=== PATIENT | female | born 1945 | race Caucasian/White ===

== ENCOUNTER → 2017-03-01 | Outpatient (CLI) | payer MEDICARE ==
--- NOTE | 2017-03-01 14:01 | XR ---
EXAMINATION TYPE: XR chest 2V DATE OF EXAM: 03/01/2017 COMPARISON: 01/02/2016 HISTORY: Lower chest pain after lifting injury TECHNIQUE: Frontal and lateral views of the chest are obtained. FINDINGS: There is no focal air space opacity, pleural effusion, or pneumothorax seen. The cardiac silhouette size is within normal limits. The osseous structures are intact. There is persistent pro minence of the right paratracheal stripe, proven to relate to SVC/azygos prominent confluence on CT t horax of 01/02/2016. Partial visualization of lumbar surgical fusion hardware is noted. Mild degenerat laly changes of the thoracic spine are seen. No displaced fractures are noted. IMPRESSION: 1. No acute cardiopulmonary process. 2. No displaced fractures.
--- NOTE | 2017-03-01 14:08 | XR ---
EXAMINATION TYPE: XR ribs RT DATE OF EXAM: 03/01/2017 COMPARISON: NONE HISTORY: Lifting injury 1 1/2 weeks ago with right-sided lower chest pain. TECHNIQUE: Frontal and oblique radiographs of the right ribs were obtained. FINDINGS: There is a nondisplaced fracture of the anterior margin of rib 8 on the right. Remaining os seous structures appear intact. Mild degenerative changes of the thoracic spine are noted. Visualized lungs appear clear. IMPRESSION: Nondisplaced fracture of the anterior margin of rib 8 on the right.
== END ==
LOC: RADXRMAIN 13:08
PROVIDERS: ATTEND Family Medicine
DX: S22.31XA Fracture of one rib, right side, initial encounter for closed fracture (principal); R07.9 Chest pain, unspecified
CPT/HCPCS: 71020

== ENCOUNTER → 2017-03-19 | Outpatient (CLI) | payer MEDICARE ==
--- NOTE | 2017-03-19 14:29 | BD ---
EXAMINATION TYPE: MG DEXA axial skeleton. DATE OF EXAM: 03/19/2017 COMPARISON: NONE CLINICAL HISTORY: Postmenopausal female Height: 63 Weight: 145.2 FRAX RISK QUESTIONS: Alcohol (3 or more units per day): no Family History (Parent hip fracture): no Glucocorticoids (More than 3mos): no (Ex: prednisone, prednisolone, methylprednisolone, dexamethasone, and hydrocortisone). History of Fracture in Adulthood: no Secondary Osteoporosis: 1. Type 1 Diabetes: no 2. Hyperthyroidism: no 3. Menopause before 45: no 4. Malnutrition: no 5. Chronic liver disease: no Rheumatoid Arthritis: no Current Tobacco Use: no RISK FACTORS HISTORY OF: Hip Fracture (Right/Left): no Spine Fracture: no History of Wrist Fracture: no Surgery to Spine/Hip(right/left)/Wrist (right/left): l-spine fusion/ l-4.l-5 with plates and screws When: 2010 Family History of Osteoporosis: unsure Active: yes Diet low in dairy products/other sources of calcium: no Postmenopausal woman: age 52 Lost more than 2 inches in height since high school: just 2 inches Frequent falls: no Poor Health: no Adrenal Insufficiency: no MEDICATIONS: lisinopril, omeprazole Additional History: spine surgery 2010 EXAM MEASUREMENTS: Bone mineral densitometry was performed using the [employer] System. Bone mineral density about the R hip (g/cm2): 0.654 Bone mineral density about the L hip (g/cm2): 0.632 T Score values are as follows: -----R Neck: -2.8 -----L Neck: -2.9 -----R Total: -2.2 -----L Total: -2.2 Bone mineral density baseline here IMPRESSION: Osteoporosis (T Score less than -2.5) as noted by T Score values at the There is increased fracture risk and therapy is usually indicated based on age. Re-Screen 1-2 years. NOTE: T-SCORE=SD OF THE YOUNG ADULT MEAN.
--- NOTE | 2017-03-22 12:05 | MM ---
Reason for exam: screening (asymptomatic). Last mammogram was performed 1 year and 11 months ago. History: Patient is postmenopausal. Family history of breast cancer in maternal aunt at age 80. Benign excisional biopsy of the left breast, 2004. Cyst aspiration of the left breast. Physical Findings: A clinical breast exam by your physician is recommended on an annual basis and results should be correlated with mammographic findings. MG 3D Screening Mammo W/Cad Bilateral CC and MLO view(s) were taken. Prior study comparison: April 25, 2015, mammogram, performed at [facility]. April 05, 2014, mammogram, performed at [facility]. The breast tissue is heterogeneously dense. This may lower the sensitivity of mammography. There is no discrete abnormality. No significant changes when compared with prior studies. ASSESSMENT: Negative, BI-RAD 1 RECOMMENDATION: Routine screening mammogram of both breasts in 1 year.
== END | disposition home or self-care (01) ==
LOC: RADMAMWWP 11:35
PROVIDERS: ATTEND Family Medicine
DX: Z12.31 Encounter for screening mammogram for malignant neoplasm of breast (principal); M81.0 Age-related osteoporosis without current pathological fracture
CPT/HCPCS: 77080; 77063; G0202

== ENCOUNTER → 2017-08-23 | Outpatient (CLI) | payer MEDICARE ==
[2017-08-23 10:22] LABS: Basophils # (A) 0.1 k/uL (0-0.2); Basophils % (A) 1 %; Eosinophils # (A) 0.1 k/uL (0-0.7); Eosinophils % (A) 1 %; HCT 43.3 % (34.0-46.0); HGB 13.6 gm/dL (11.4-16.0); Lymphocytes # (A) 1.4 k/uL (1.0-4.8); Lymphocytes % (A) 35 %; MCH 30.8 pg (25.0-35.0); MCHC 31.4 g/dL (31.0-37.0); MCV 98.2 fL (80.0-100.0); Mean Platelet Volume 7.2; Monocytes # (A) 0.4 k/uL (0-1.0); Monocytes % (A) 9 %; Neutrophils # (A) 1.9 k/uL (1.3-7.7); Neutrophils % (A) 50 %; Platelet Count 207 k/uL (150-450); RBC 4.41 m/uL (3.80-5.40); RDW 12.1 % (11.5-15.5); WBC 3.9 k/uL (3.8-10.6)
[2017-08-23 10:26] LABS: ALT 35 U/L (9-52); AST 26 U/L (14-36); Albumin 4.3 g/dL (3.5-5.0); Alkaline Phosphatase 68 U/L (38-126); Anion Gap 9 mmol/L; Blood Urea Nitrogen 20 mg/dL (7-17); Calcium 9.7 mg/dL (8.4-10.2); Carbon Dioxide 29 mmol/L (22-30); Chloride 102 mmol/L (98-107); Glucose 89 mg/dL (74-99); Potassium 4.3 mmol/L (3.5-5.1); Sodium 140 mmol/L (137-145); Total Bilirubin 0.7 mg/dL (0.2-1.3); Total Protein 6.9 g/dL (6.3-8.2)
== END | disposition home or self-care (01) ==
LOC: LABWHC1 09:18
PROVIDERS: ATTEND Family Medicine
DX: I10 Essential (primary) hypertension (principal); D72.819 Decreased white blood cell count, unspecified
CPT/HCPCS: 36415; 80053; 85025

== ENCOUNTER → 2018-05-03 | Outpatient (CLI) | payer MEDICARE ==
[2018-05-03 10:40] LABS: HCT 40.8 % (34.0-46.0); HGB 13.2 gm/dL (11.4-16.0); MCH 31.3 pg (25.0-35.0); MCHC 32.3 g/dL (31.0-37.0); MCV 96.9 fL (80.0-100.0); Mean Platelet Volume 6.8; Platelet Count 209 k/uL (150-450); RBC 4.21 m/uL (3.80-5.40); RDW 12.2 % (11.5-15.5); WBC 3.5 k/uL (3.8-10.6)
[2018-05-03 17:26] LABS: Albumin 4.3 g/dL (3.80-4.90); Albumin/Globulin Ratio 2.15 (1.20-2.10); Anion Gap 7.2 mmol/L (4.00-12.00); Calcium 9.3 mg/dL (8.7-10.3); Carbon Dioxide 29.8 mmol/L (21.6-31.8); LDL Cholesterol,Calculated 81.2 mg/dL (0.0-131.0); Potassium 4.3 mmol/L (3.5-5.5); Total Bilirubin 0.5 mg/dL (0.2-1.2); Total Protein 6.3 g/dL (6.2-8.2); VLDL Calculation 21.8 mg/dL (5.00-40.00)
== END ==
LOC: LABWHC1 09:46
PROVIDERS: ATTEND Family Medicine
DX: Z00.00 Encounter for general adult medical examination without abnormal findings (principal)
CPT/HCPCS: 36415; 80053; 80061; 84443; 85027

== ENCOUNTER → 2018-12-27 | Outpatient (CLI) | payer MEDICARE ==
--- NOTE | 2018-12-28 09:14 | ECHOF ---
Referral Reason:mitral value prolapse I34.1 MEASUREMENTS -------- HEIGHT: 160.0 cm WEIGHT: 62.6 kg BP: 157/75 RVIDd: 3.9 cm (< 3.3) IVSd: 1.3 cm (0.6 - 1.1) LVIDd: 4.1 cm (3.9 - 5.3) LVPWd: 1.4 cm (0.6 - 1.1) IVSs: 1.3 cm LVIDs: 2.9 cm LVPWs: 2.1 cm LAESV Index (A-L): 21.13 ml/m Ao Diam: 3.0 cm (2.0 - 3.7) AV Cusp: 1.7 cm (1.5 - 2.6) LA Diam: 4.0 cm (2.7 - 3.8) MV EXCURSION: 15.618 mm (> 18.000) MV EF SLOPE: 75 mm/s (70 - 150) EPSS: 1.8 cm MV E Pablo: 0.59 m/s MV DecT: 168 ms MV A Pablo: 0.60 m/s MV E/A Ratio: 0.99 AR PHT: 582 ms RAP: 5.00 mmHg RVSP: 30.29 mmHg FINDINGS -------- Sinus rhythm. This was a technically adequate study. The left ventricular size is normal. There is mild concentric left ventricular hypertrophy. There is normal global left ventricular contractility. Overall left ventricular systolic function is nor mal with, an EF between 55 - 60 %. The diastolic filling pattern is normal for the age of the patie nt 8.41. The right ventricle is moderately enlarged. Moderator band is visualized in the right ventricular a pex. Normal LA size by volume 22+/-6 ml/m2. The right atrial size is normal. Interatrial and interventricular septum intact. The aortic valve is trileaflet and appears structurally normal. There is mild aortic valve sclerosi s. Trace to mild aortic regurgitation. There is no evidence of aortic stenosis. There is trace to mild mitral regurgitation. There is minimal mitral valve prolapse. Mild tricuspid regurgitation present. There is no evidence of pulmonary hypertension. The right v entricular systolic pressure, as measured by Doppler, is 30.29mmHg. The aortic root size is normal. Normal inferior vena cava with normal inspiratory collapse consistent with estimated right atrial pre ssure of 5 mmHg. There is no pericardial effusion. CONCLUSIONS -------- 1. Sinus rhythm. 2. This was a technically adequate study. 3. The left ventricular size is normal. 4. There is mild concentric left ventricular hypertrophy. 5. There is normal global left ventricular contractility. 6. Overall left ventricular systolic function is normal with, an EF between 55 - 60 %. 7. The diastolic filling pattern is normal for the age of the patient 8.41 8. The right ventricle is moderately enlarged. 9. Moderator band is visualized in the right ventricular apex. 10. Normal LA size by volume 22+/-6 ml/m2. 11. The right atrial size is normal. 12. Interatrial and interventricular septum intact. 13. The aortic valve is trileaflet and appears structurally normal. 14. There is mild aortic valve sclerosis. 15. Trace to mild aortic regurgitation. 16. There is no evidence of aortic stenosis. 17. There is trace to mild mitral regurgitation. 18. There is minimal mitral valve prolapse. 19. Mild tricuspid regurgitation present. 20. There is no evidence of pulmonary hypertension. 21. The right ventricular systolic pressure, as measured by Doppler, is 30.29mmHg. 22. The aortic root size is normal. 23. Normal inferior vena cava with normal inspiratory collapse consistent with estimated right atrial pressure of 5 mmHg. 24. There is no pericardial effusion. INTERNET [employer]ERCE SPECIALIST: Yun Nicole RDCS
== END | disposition home or self-care (01) ==
LOC: RADECHMAIN 14:41
PROVIDERS: ATTEND Family Medicine
DX: I34.1 Nonrheumatic mitral (valve) prolapse (principal); I51.7 Cardiomegaly; I35.8 Other nonrheumatic aortic valve disorders
CPT/HCPCS: 93306

== ENCOUNTER 2019-05-01 11:38 | Day surgery (SDC) | payer MEDICARE ==
[2019-04-27 09:23] VITALS: BMI 24.4
[~2019-05-01 11:38] MED LIST: LACTATED RINGERS 1,000 ML IV SCH; LIDOCAINE 1% 20 ML VIAL (10MG/ML) FOR IV START INTRADERMA PRN
[2019-05-01 11:58] VITALS: TEMP 98.2
[2019-05-01] MEDS ORDERED: LIDOCAINE 1% INJ 10MG/ML (20 ML MDV) ONE (12:58)
[2019-05-01] MEDS ORDERED: PROPOFOL 10 MG/ML 20 ML VIAL IV ONE (12:58)
--- NOTE | 2019-05-01 13:23 | P.PCN ---
Date of Procedure: 05/01/19 Description of Procedure: BRIEF HISTORY: Patient is a 73-year-old, pleasant, female with a medical history significant for Saenz's esophagus who comes in for EGD for surveillance. Last EGD 2-3 years ago was again consistent with Saenz's esophagus. She is on omeprazole 40 mg daily. She also takes Mylanta as needed for breakthrough symptoms. PROCEDURE PERFORMED: Esophagogastroduodenoscopy with biopsy. PREOPERATIVE DIAGNOSIS: Saenz's esophagus. ESTIMATED BLOOD LOSS: Minimal. IV sedation per anesthesia. PROCEDURE: After informed consent was obtained, the patient was brought into the endoscopy unit. IV sedation was administered by Anesthesia under continuous monitoring. Initially the Olympus GIF-190 video endoscope was inserted into the mouth. Esophagus intubated without any difficulty. It was gradually advanced into the stomach and duodenum and carefully examined. The bulb and the second part of the duodenum appeared normal, with biopsies taken to rule out celiac sprue. The scope at this time was withdrawn to the stomach, adequately insufflated with ai r, and upon careful examination, mucosa of the antrum, body, cardia and the fundus appeared normal, except for some mild punctate erythema in the antrum and body suggestive of mild gastritis with biopsies taken. The scope was then withdrawn into the esophagus. The GE junction was located at 36 cm from the incisors. The esophagus was significant for a 3 cm segment of Saenz's esophagus with no mucosal abnormalities noted and biopsies of the esophagus taken. There were no erosions or ulcerations seen and the patient tolerated the procedure well. IMPRESSION: 1. Lower esophageal/Saenz's esophagus biopsies. 2. Mild gastritis antrum and body biopsied. 3. Duodenal biopsies. RECOMMENDATIONS: The findings of this examination were discussed with the patient and her family. Okay to resume diet. Continue omeprazole 40 mg daily. Await pathology from biopsies. Anticipate repeat EGD in 3 years for Saenz's surveillance.
[2019-05-01 13:39] VITALS: BP 131/68; PULSE 77; RESP 18
== END 2019-05-01 14:28 | disposition home or self-care (01) ==
LOC: ORWHC2ENDO 11:38
PROVIDERS: ATTEND Internal Medicine
DX: K21.0 Gastro-esophageal reflux disease with esophagitis (principal); I10 Essential (primary) hypertension; I34.1 Nonrheumatic mitral (valve) prolapse; K29.50 Unspecified chronic gastritis without bleeding; Z80.41 Family history of malignant neoplasm of ovary; Z88.5 Allergy status to narcotic agent; Z79.899 Other long term (current) drug therapy; Z90.710 Acquired absence of both cervix and uterus; Z98.890 Other specified postprocedural states; Z79.82 Long term (current) use of aspirin
CPT/HCPCS: 88305; 43239; J2001; J2704

== ENCOUNTER → 2019-05-04 | Outpatient (CLI) | payer MEDICARE ==
--- NOTE | 2019-05-05 07:18 | BD ---
EXAMINATION TYPE: Axial Bone Density DATE OF EXAM: 05/04/2019 COMPARISON: 2017 CLINICAL HISTORY: M 83.0 Height: 5 FT 2 IN Weight: 141 FRAX RISK QUESTIONS: History of Fracture in Adulthood: YES Secondary Osteoporosis: 5. Chronic liver disease: CYST RISK FACTORS HISTORY OF: Surgery to Spine/Hip(right/left)/Wrist (right/left): LUMBAR When: 2010 Active: YES Postmenopausal woman: TOTAL HYST AGE 54 Lost more than 2 inches in height since high school: YES MEDICATIONS: Additional Medications: OMEPRAZOLE, Additional History: EXAM MEASUREMENTS: Bone mineral density about the R hip (g/cm2): 0.649 Bone mineral density about the L hip (g/cm2): 0.661 T Score values are as follows: -----R Neck: -2.8 -----L Neck: -2.7 -----R Total: -2.4 -----L Total: -2.5 Bone mineral density has: DECREASED -3.2 % since study of: 2017 Bone mineral density about the L Wrist (g/cm2): 0.317 T Score values are as follows: -----Dist. R+U: -6.1 -----Prox. R+U: -4.3 -----Radius total: -5.9 FIRST TIME WRIST HAS BEEN DONE IMPRESSION: Osteoporosis (T Score less than -2.5). There is increased fracture risk and therapy is usually indicated based on age. Re-Screen 1-2 years. NOTE: T-SCORE=SD OF THE YOUNG ADULT MEAN.
--- NOTE | 2019-05-05 11:10 | MM ---
Reason for exam: screening (asymptomatic). Last mammogram was performed 2 years and 1 month ago. History: Patient is postmenopausal. Family history of breast cancer in maternal aunt at age 80. Benign excisional biopsy of the left breast, 2004. Cyst aspiration of the left breast. Physical Findings: A clinical breast exam by your physician is recommended on an annual basis and results should be correlated with mammographic findings. MG 3D Screening Mammo W/Cad Bilateral CC and MLO view(s) were taken. Prior study comparison: March 19, 2017, bilateral MG 3d screening mammo w/cad. April 25, 2015, mammogram, performed at [facility]. The breast tissue is heterogeneously dense. This may lower the sensitivity of mammography. No suspicious abnormality. No significant changes when compared with prior studies. ASSESSMENT: Negative, BI-RAD 1 RECOMMENDATION: Routine screening mammogram of both breasts in 1 year.
== END | disposition home or self-care (01) ==
LOC: RADBDWWP 14:23
PROVIDERS: ATTEND Family Medicine
DX: Z12.31 Encounter for screening mammogram for malignant neoplasm of breast (principal); M81.0 Age-related osteoporosis without current pathological fracture
CPT/HCPCS: 77063; 77067; 77080

== ENCOUNTER → 2020-07-02 | Outpatient (CLI) | payer MEDICARE ==
--- NOTE | 2020-07-03 13:29 | MM ---
Reason for exam: screening (asymptomatic). Last mammogram was performed 1 year and 2 months ago. History: Patient is postmenopausal. Family history of breast cancer in maternal aunt at age 80. Benign excisional biopsy of the left breast, 2004. Cyst aspiration of the left breast. Physical Findings: A clinical breast exam by your physician is recommended on an annual basis and results should be correlated with mammographic findings. MG 3D Screening Mammo W/Cad Bilateral CC and MLO view(s) were taken. Prior study comparison: May 04, 2019, bilateral MG 3d screening mammo w/cad. March 19, 2017, bilateral MG 3d screening mammo w/cad. The breast tissue is heterogeneously dense. This may lower the sensitivity of mammography. There is no discrete abnormality. ASSESSMENT: Negative, BI-RAD 1 RECOMMENDATION: Routine screening mammogram of both breasts in 1 year.
== END | disposition home or self-care (01) ==
LOC: RADMAMWWP 11:46
PROVIDERS: ATTEND Family Medicine
DX: Z12.31 Encounter for screening mammogram for malignant neoplasm of breast (principal)
CPT/HCPCS: 77063; 77067

== ENCOUNTER → 2021-06-02 | Outpatient (CLI) | payer MEDICARE ==
[2021-06-02 14:53] LABS: Basophils # (A) 0.04 X 10*3/uL (0.00-0.10); Basophils % (A) 1.1 %; Eosinophils # (A) 0.06 X 10*3/uL (0.04-0.35); Eosinophils % (A) 1.7 %; HCT 40.7 % (37.2-46.3); HGB 13.3 g/dL (12.0-15.0); Lymphocytes # (A) 1.27 X 10*3/uL (0.90-5.00); Lymphocytes % (A) 36.5 %; MCHC 32.7 g/dL (32.0-37.0); Mean Platelet Volume 10.1 fL (9.5-12.2); Monocytes # (A) 0.48 X 10*3/uL (0.20-1.00); Monocytes % (A) 13.8 %; Neutrophils # (A) 1.62 X 10*3/uL (1.80-7.70); Neutrophils % (A) 46.6 %; Platelet Count 207 X 10*3/uL (140-440); RBC 4.03 X 10*6/uL (4.10-5.20); RDW 11.9 % (11.5-14.5); WBC 3.48 X 10*3/uL (4.50-10.00)
[2021-06-02 16:13] LABS: ALT 18 U/L (8-44); AST 23 U/L (13-35); African American GFR (CKD) 100.1 (60.0-200.0); Albumin 4.4 g/dL (3.8-4.9); Alkaline Phosphatase 64 U/L (41-126); BUN/Creat Ratio 30.91 Ratio (12.00-20.00); Blood Urea Nitrogen 21.3 mg/dL (9.0-27.0); Calcium 9.7 mg/dL (8.7-10.3); Carbon Dioxide 25.1 mmol/L (20.0-27.5); Chloride 102 mmol/L (96-109); Chol/HDL Ratio 2.36 Ratio; Globulin 2.1 g/dL (1.6-3.3); Glucose 91 mg/dL (70-110); LDL Cholesterol,Calculated 87.2 mg/dL (0.0-131.0); Non-African American GFR(CKD) 86.4 (60.0-200.0); Potassium 4.2 mmol/L (3.5-5.5); Sodium 139 mmol/L (135-145); Total Protein 6.4 g/dL (6.2-8.2)
== END | disposition home or self-care (01) ==
LOC: LABWHC1 08:56
PROVIDERS: ATTEND Family Medicine
DX: Z00.00 Encounter for general adult medical examination without abnormal findings (principal); I10 Essential (primary) hypertension
CPT/HCPCS: 36415; 80053; 80061; 84443; 85025

== ENCOUNTER → 2021-09-09 | Outpatient (CLI) | payer MEDICARE ==
--- NOTE | 2021-09-09 21:06 | BD ---
EXAMINATION TYPE: Axial Bone Density DATE OF EXAM: 09/09/2021 COMPARISON: 05.04.2019 CLINICAL HISTORY: 76 years year old Female. ICD-10 CODE: Osteoporosis M81.0 Height: 62.2 Weight: 137 FRAX RISK QUESTIONS: History of Fracture in Adulthood: YES RISK FACTORS HISTORY OF: HX OF RIB FRACTURES AN ADULT, Surgery to Spine SPINAL FUSION AND LAMINECTOMY, 2010 Postmenopausal woman: YES, AT AGE 54 YRS OLD, COMPLETE HYST Take estrogen and/or progesterone medications: YES, FOR ABOUT A YR ONLY Hyperparathyroidism: NO Adrenal Insufficiency: NO MEDICATIONS: Osteoporosis Medications: HAVE TRIED OSTEOPOROSIS MEDS IN THE PAST FOR 6 YRS, FOSAMAX, NOTHING NOW Additional Medications: REFLUX MEDS, VIT D AND CALCIUM Additional History: REFLUX, OSTEOPOROSIS, HX OF SPINAL FUSION, ERT IN PAST ONLY, EXAM MEASUREMENTS: Bone mineral densitometry was performed using the [employer] System. SPINAL FUSION......SPINE NOT SCANNED Bone mineral density about the R hip (g/cm2): 0.737 Bone mineral density about the L hip (g/cm2): 0.960 T Score values are as follows: -----R Neck: -2.9 -----L Neck: -3.0 -----R Total: -2.1 -----L Total: -2.5 Bone mineral density has: Increased 1.7% since study of: 05.04.2019 Bone mineral density about the L Wrist (g/cm2): 0.314 T Score values are as follows: -----Dist. R+U: -5.8 -----Prox. R+U: -4.4 -----Radius total: -6.0 Bone mineral density has: Decreased -2.0% since study of: 05.04.2019 FRAX%s: The graph provided illustrates a 33.7% chance for a major osteoporotic fx and a 13.7% chance for the hips probability for fx in 10 years time. IMPRESSION: Osteoporosis (T Score less than -2.5). There is increased fracture risk and therapy is usually indicated based on age. Re-Screen 1-2 years. NOTE: T-SCORE=SD OF THE YOUNG ADULT MEAN.
--- NOTE | 2021-09-11 13:43 | MM ---
Reason for exam: screening (asymptomatic). Last mammogram was performed 1 year and 2 months ago. History: Patient is postmenopausal. Family history of breast cancer in maternal aunt at age 80. Benign excisional biopsy of the left breast, 2004. Cyst aspiration of the left breast. Physical Findings: A clinical breast exam by your physician is recommended on an annual basis and results should be correlated with mammographic findings. MG 3D Screening Mammo W/Cad Bilateral CC and MLO view(s) were taken. Prior study comparison: July 02, 2020, bilateral MG 3d screening mammo w/cad. May 04, 2019, bilateral MG 3d screening mammo w/cad. There are scattered fibroglandular densities. No significant changes when compared with prior studies. ASSESSMENT: Benign, BI-RAD 2 RECOMMENDATION: Routine screening mammogram of both breasts in 1 year.
== END | disposition home or self-care (01) ==
LOC: RADMAMWWP 12:39
PROVIDERS: ATTEND Family Medicine
DX: Z12.31 Encounter for screening mammogram for malignant neoplasm of breast (principal); M81.0 Age-related osteoporosis without current pathological fracture; Z80.3 Family history of malignant neoplasm of breast; Z78.0 Asymptomatic menopausal state
CPT/HCPCS: 77063; 77067; 77080

== ENCOUNTER 2021-10-10 14:03 | Emergency (ER) | payer MEDICARE ==
[2021-10-10 14:56] VITALS: TEMP 98.2
[2021-10-10 15:57] LABS: Appearance,Urine Clear (Clear); Bilirubin,Urine Negative (Negative); Blood,Urine Negative (Negative); Color,Urine Light Yellow; Glucose,Urine (UA) Negative (Negative); Ketones,Urine Negative (Negative); Leukocyte Esterase,Urine Negative (Negative); Nitrite,Urine Negative (Negative); Protein,Urine Negative (Negative); Urobilinogen,Urine <2.0 mg/dL (<2.0)
[2021-10-10 16:02] LABS: Basophils % (A) 1 %; Eosinophils % (A) 1 %; HCT 43.5 % (34.0-46.0); HGB 14.7 gm/dL (11.4-16.0); Lymphocytes # (A) 1.1 k/uL (1.0-4.8); Lymphocytes % (A) 24 %; MCH 33.9 pg (25.0-35.0); MCHC 33.8 g/dL (31.0-37.0); MCV 100.4 fL (80.0-100.0); Mean Platelet Volume 7.2; Monocytes # (A) 0.3 k/uL (0-1.0); Monocytes % (A) 6 %; Neutrophils # (A) 3.2 k/uL (1.3-7.7); Neutrophils % (A) 65 %; Platelet Count 249 k/uL (150-450); RBC 4.33 m/uL (3.80-5.40); RDW 12.4 % (11.5-15.5); WBC 4.8 k/uL (3.8-10.6)
[2021-10-10 16:08] LABS: ALT 18 U/L (4-34); AST 29 U/L (14-36); African American GFR (CKD) >90 (>60 ml/min/1.73 sqM); Albumin 4.4 g/dL (3.5-5.0); Alkaline Phosphatase 79 U/L (38-126); Anion Gap 6 mmol/L; Blood Urea Nitrogen 18 mg/dL (7-17); Calcium 9.4 mg/dL (8.4-10.2); Carbon Dioxide 27 mmol/L (22-30); Chloride 105 mmol/L (98-107); Glucose 118 mg/dL (74-99); Non-African American GFR(CKD) 88 (>60 ml/min/1.73 sqM); Potassium 3.8 mmol/L (3.5-5.1); Sodium 138 mmol/L (137-145); Total Bilirubin 0.7 mg/dL (0.2-1.3); Total Protein 7.3 g/dL (6.3-8.2)
--- NOTE | 2021-10-10 16:31 | ED ---
General Adult HPI - General Chief complaint: Dizziness Stated complaint: High BP Source: patient Mode of arrival: ambulatory Limitations: no limitations - History of Present Illness Initial comments: 76-year-old female past medical history of BPPV, hypertension not on medications presents to the emergency department with dizziness. He states that she has had BPPV for decades. She normally performs the Artur maneuver when she has her episodes and has improvement in her symptoms. Reports that since May she has had increasing episodes. She saw an flavor maker in June and has further testing upcoming. She has not had any imaging of her head since 2013. She is currently not on any medications for her symptoms. Reports that this morning she attempted to roll over in bed and was actually dizzy. She was able to control her symptoms. Her reports that they were in the kitchen together when she ended up falling due to the dizziness. She has chronic hea daches which occur when she wakes up after about 5 hours. States that this is also occurred for decades. Denies any new or worsening headaches. No current headache. No current dizziness. Denies associated chest pain or shortness of breath. No recent injuries. No fevers. No unilateral numbness or weakness. They went into the urgent care clinic in [place]. They noted that the patient's blood pressure is high and therefore recommended that she come into the emergency room for further evaluation. No other alleviating, precipitating modifying factors - Related Data Home Medications Medication Instructions Recorded Confirmed Ascorbic Acid [Vitamin C] 500 mg PO HS 01/02/16 10/10/21 Calcium Carbonate [Calcium] 600 mg PO AC-BID 01/02/16 10/10/21 Cholecalciferol [Vitamin D3] 2,000 unit PO AC-BID 01/02/16 10/10/21 Magnesium Oxide [Mag-Ox] 250 mg PO AC-BID 01/02/16 10/10/21 Multivitamins, Thera [Multivitamin] 1 tab PO HS 01/02/16 10/10/21 Omeprazole 40 mg PO HS 01/02/16 10/10/21 [id number] 1 tab PO DAILY 10/10/21 10/10/21 [Excedrin] Fluticasone Nasal [place] [Flonase 1 spray EA NOSTRIL HS 10/10/21 10/10/21 Nasal [place]] Melatonin 10 mg PO HS 10/10/21 10/10/21 Previous Rx's Medication Instructions Recorded Furosemide [Lasix] 20 mg PO DAILY #30 tablet 10/10/21 Allergies Allergy/AdvReac Type Severity Reaction Status Date / Time codeine Allergy Nausea & Verified 10/10/21 17:10 Vomiting Review of Systems ROS Statement: Those systems with pertinent positive or pertinent negative responses have been documented in the HPI. ROS Other: All systems not noted in ROS Statement are negative. Past Medical History Past Medical History: Asthma, GERD/Reflux, Hypertension, Mitral Valve Prolapse (MVP), Osteoarthritis (OA), Sleep Apnea/CPAP/BIPAP Additional Past Medical History / Comment(s): heart murmur, DOES NOT USE A CAP MACHINE. DIVERTICULOSIS, CRUZ'S DISEASE History of Any Multi-Drug Resistant Organisms: None Reported Past Surgical History: Back Surgery, Hysterectomy Additional Past Surgical History / Comment(s): COLONOSCOPY AND EGD Past Anesthesia/Blood Transfusion Reactions: Postoperative Nausea & Vomiting (PONV) Past Psychological History: Anxiety Smoking Status: Never smoker Past Alcohol Use History: None Reported Past Drug Use History: None Reported - Past Family History Mother Family Medical History: Cancer, CVA/TIA Additional Family Medical History / Comment(s): OVARIAN CANCER General Exam Limitations: no limitations Course Vital Signs 10/10/21 10/10/21 10/10/21 14:52 15:37 17:03 Temperature 98.2 F Pulse Rate 79 76 81 Respiratory 18 14 16 Rate Blood Pressure 168/83 169/87 160/89 O2 Sat by Pulse 98 98 96 Oximetry 10/10/21 17:10 Temperature Pulse Rate 67 Respiratory 16 Rate Blood Pressure 141/93 O2 Sat by Pulse 100 Oximetry EKG Findings - EKG Comments: EKG Findings:: EKG demonstrates sinus rhythm with a rate of 77. ME interval 187. QRS 97. QTC 388. No acute ST segment elevations or depressions Medical Decision Making - Medical Decision Making Upon arrival patient was placed into room 27. She denies active symptoms at t his time. She does have a horizontal ice diagnosis. I recommended Antivert however the patient refused at this time. Laboratories his were conducted. I did perform a CT of the patient's brain. Review of the laboratory studies and imaging failed to demonstrate any acute process. Patient does have improvement in her blood pressure without treatment however still remains high. I recommended starting the patient on Lasix. She is to keep a blood pressure log. Follow-up with her primary care doctor as she may need medication adjustments. Also follow-up with her ENT for further testing for vertigo. Return for any new or worsening symptoms. Patient does have meclizine at home at her disposal if needed. Patient agreed to the treatment plan and is discharged home in stable condition - Lab Data Result diagrams: 10/10/21 15:34 10/10/21 15:34 Lab Results 10/10/21 10/10/21 10/10/21 Range/Units 15:34 15:34 15:34 WBC 4.8 (3.8-10.6) k/uL RBC 4.33 (3.80-5.40) m/uL Hgb 14.7 (11.4-16.0) gm/dL Hct 43.5 (34.0-46.0) % MCV 100.4 H (80.0-100.0) fL MCH 33.9 (25.0-35.0) pg MCHC 33.8 (31.0-37.0) g/dL RDW 12.4 (11.5-15.5) % Plt Count 249 (150-450) k/uL MPV 7.2 Neutrophils % 65 % Lymphocytes % 24 % Monocytes % 6 % Eosinophils % 1 % Basophils % 1 % Neutrophils # 3.2 (1.3-7.7) k/uL Lymphocytes # 1.1 (1.0-4.8) k/uL Monocytes # 0.3 (0-1.0) k/uL Eosinophils # 0.0 (0-0.7) k/uL Basophils # 0.0 (0-0.2) k/uL Sodium 138 (137-145) mmol/L Potassium 3.8 (3.5-5.1) mmol/L Chloride 105 (98-107) mmol/L Carbon Dioxide 27 (22-30) mmol/L Anion Gap 6 mmol/L BUN 18 H (7-17) mg/dL Creatinine 0.64 (0.52-1.04) mg/dL Est GFR (CKD-EPI)AfAm >90 (>60 ml/min/1.73 sqM) Est GFR (CKD-EPI)NonAf 88 (>60 ml/min/1.73 sqM) Glucose 118 H (74-99) mg/dL Plasma Lactic Acid Ernie (0.7-2.0) mmol/L Calcium 9.4 (8.4-10.2) mg/dL Total Bilirubin 0.7 (0.2-1.3) mg/dL AST 29 (14-36) U/L ALT 18 (4-34) U/L Alkaline Phosphatase 79 (38-126) U/L Troponin I (0.000-0.034) ng/mL Total Protein 7.3 (6.3-8.2) g/dL Albumin 4.4 (3.5-5.0) g/dL Urine Color Light Yellow Urine Appearance Clear (Clear) Urine pH 7.0 (5.0-8.0) Ur Specific [place] 1.010 (1.001-1.035) Urine Protein Negative (Negative) Urine Glucose (UA) Negative (Negative) Urine Ketones Negative (Negative) Urine Blood Negative (Negative) Urine Nitrite Negative (Negative) Urine Bilirubin Negative (Negative) Urine Urobilinogen <2.0 (<2.0) mg/dL Ur Leukocyte Esterase Negative (Negative) 10/10/21 10/10/21 Range/Units 15:34 15:34 WBC (3.8-10.6) k/uL RBC (3.80-5.40) m/uL Hgb (11.4-16.0) gm/dL Hct (34.0-46.0) % MCV (80.0-100.0) fL MCH (25.0-35.0) pg MCHC (31.0-37.0) g/dL RDW (11.5-15.5) % Plt Count (150-450) k/uL MPV Neutrophils % % Lymphocytes % % Monocytes % % Eosinophils % % Basophils % % Neutrophils # (1.3-7.7) k/uL Lymphocytes # (1.0-4.8) k/uL Monocytes # (0-1.0) k/uL Eosinophils # (0-0.7) k/uL Basophils # (0-0.2) k/uL Sodium (137-145) mmol/L Potassium (3.5-5.1) mmol/L Chloride (98-107) mmol/L Carbon Dioxide (22-30) mmol/L Anion Gap mmol/L BUN (7-17) mg/dL Creatinine (0.52-1.04) mg/dL Est GFR (CKD-EPI)AfAm (>60 ml/min/1.73 sqM) Est GFR (CKD-EPI)NonAf (>60 ml/min/1.73 sqM) Glucose (74-99) mg/dL Plasma Lactic Acid Ernie 1.2 (0.7-2.0) mmol/L Calcium (8.4-10.2) mg/dL Total Bilirubin (0.2-1.3) mg/dL AST (14-36) U/L ALT (4-34) U/L Alkaline Phosphatase (38-126) U/L Troponin I <0.012 (0.000-0.034) ng/mL Total Protein (6.3-8.2) g/dL Albumin (3.5-5.0) g/dL Urine Color Urine Appearance (Clear) Urine pH (5.0-8.0) Ur Specific [place] (1.001-1.035) Urine Protein (Negative) Urine Glucose (UA) (Negative) Urine Ketones (Negative) Urine Blood (Negative) Urine Nitrite (Negative) Urine Bilirubin (Negative) Urine Urobilinogen (<2.0) mg/dL Ur Leukocyte Esterase (Negative) Disposition Clinical Impression: Vertigo, Hypertension Disposition: HOME SELF-CARE Condition: Stable Instructions (If sedation given, give patient instructions): Vertigo (ED), Hypertension (ED) Additional Instructions: Please follow-up with the ENT for further evaluation. Take the Lasix daily. K eep a log of your blood pressures. Take meclizine as needed for vertigo symptoms. Return to the emergency room for any new or worsening symptoms Prescriptions: Furosemide [Lasix] 20 mg PO DAILY #30 tablet Is patient prescribed a controlled substance at d/c from ED?: No Referrals: Robe Dudley MD [Primary Care Provider] - 1-2 days Calderon Mooney MD [STAFF PHYSICIAN] - 1-2 days Time of Disposition: 17:55
--- NOTE | 2021-10-10 16:58 | CT ---
EXAMINATION TYPE: CT brain wo con CT DLP: 1087.8 mGycm, Automated exposure control for dose reduction was used. DATE OF EXAM: 10/10/2021 4:42 PM COMPARISON: None. CLINICAL INDICATION:Female, 76 years old with history of vertigo, TECHNIQUE: Brain: Multiple axial CT images of the brain were obtained without IV contrast. FINDINGS: Brain: Extra-axial spaces: No abnormal extra-axial fluid collections. Ventricular system: Within normal limits Cerebral parenchyma: No acute intraparenchymal hemorrhage or mass effect. The garrett-white junction is well differentiated. Scattered hypoattenuating areas are seen within the white matter. Cerebellum: Unremarkable. Mass effect: No evidence of midline shift. Intracranial vasculature: unremarkable Soft tissues: Normal. Calvarium/osseous structures: No depressed skull fracture. Paranasal sinuses and mastoid air cells: Mild scattered paranasal sinus disease. Visualized orbits: Orbital contents are intact. IMPRESSION: 1. No acute intracranial process. 2. Nonspecific white matter changes, likely secondary to chronic small vessel ischemic disease.
[2021-10-10 17:04] VITALS: RESP 16
[2021-10-10 17:10] VITALS: BP 141/93; PULSE 67
--- NOTE | 2021-10-10 17:10 | CT ---
EXAMINATION TYPE: CT angio head neck CT DLP: 334.5 mGycm, Automated exposure control for dose reduction was used. DATE OF EXAM: 10/10/2021 4:59 PM COMPARISON: None. CLINICAL INDICATION:Female, 76 years old with history of vertigo; TECHNIQUE: Axially acquired helical CT angiogram of the head and neck was obtained with contrast util izing 75 cc of Isovue-370 administered intravenously. Axial images are supplemented with 3D reconstru ctions which were post-processed at an independent workstation. NASCET criteria used. FINDINGS: CTA HEAD: No evidence of acute intracranial hemorrhage, mass effect, or midline shift. The ventricles, sulci, a nd cisterns are unremarkable. The visualized portions of the internal carotid arteries, middle cerebral arteries, anterior cerebral arteries, and posterior cerebral arteries are patent. The basilar and vertebral arteries are patent. CTA NECK: Right Carotid System: The common carotid artery and external carotid artery are patent. The carotid bifurcation demonstrate s no evidence of hemodynamically significant stenosis. The remaining portions of the internal carotid artery demonstrate normal size without significant narrowing. Left Carotid System: The common carotid artery and external carotid artery are patent. The carotid bifurcation demonstrate s no evidence of hemodynamically significant stenosis. The remaining portions of the internal carotid artery demonstrate normal size without significant narrowing. Vertebral arteries are patent without evidence hemodynamically significant stenosis. There is a three-vessel aortic arch. The origins of the great vessels are patent. No evidence of hemo dynamically significant stenosis. IMPRESSION: 1. No evidence of dissection of the cervical internal carotid arteries or vertebral arteries or any e vidence of significant stenosis at the carotid bifurcations. 2. No evidence of high-grade stenosis or intracranial aneurysm.
[2021-10-10] MEDS ORDERED: FUROSEMIDE 20 MG TAB PO STA (17:50)
== END 2021-10-10 18:23 | disposition home or self-care (01) ==
LOC: EC 14:03
DX: R42 Dizziness and giddiness (principal); I10 Essential (primary) hypertension; J45.909 Unspecified asthma, uncomplicated; K21.9 Gastro-esophageal reflux disease without esophagitis; M19.90 Unspecified osteoarthritis, unspecified site; F41.9 Anxiety disorder, unspecified; Z79.82 Long term (current) use of aspirin; Z88.5 Allergy status to narcotic agent; Z90.710 Acquired absence of both cervix and uterus
CPT/HCPCS: 99284; 36415; 93005; 80053; 83605; 84484; 85025; 81003; 70496; 70450; 70498; Q9967

== ENCOUNTER → 2021-10-20 | Outpatient (CLI) | payer MEDICARE ==
--- NOTE | 2021-10-21 07:48 | CA ---
Transthoracic Echo Report Name: Marina Berman Age: 76 Gender: F : 1945 Exam Date: 10/20/2021 13:57 Exam Location: [place] [facility] Ht (in): 62 Wt (lb): 140 Ordering Physician: Robe Dudley MD Attending/Referring Phys: Manager [employer] Ellie Talley RDCS Procedure CPT: Indications: HYPERTENSIVE INJURY H35.039 Cardiac Hx: HTN Technical Quality: Good Contrast 1: N/A Total Dose (mL): Contrast 2: Total Dose (mL): MEASUREMENTS (Male / Female) Normal Values 2D ECHO LV Diastolic Diameter PLAX 3.5 cm 4.2 - 5.9 / 3.9 - 5.3 cm LV Systolic Diameter PLAX 2.1 cm IVS Diastolic Thickness 1.1 cm 0.6 - 1.0 / 0.6 - 0.9 cm LVPW Diastolic Thickness 1.2 cm 0.6 - 1.0 / 0.6 - 0.9 cm LV Relative Wall Thickness 0.6 RV Internal Dim ED PLAX 2.1 cm LA Volume 43.6 cm??? 18 - 58 / 22 - 52 cm??? M-MODE Aortic Root Diameter MM 2.6 cm MV E Point Septal Separation 0.5 cm AV Cusp Separation MM 1.5 cm DOPPLER MV Area PHT 2.0 cm??? Mitral E Point Velocity 38.9 cm/s Mitral A Point Velocity 74.5 cm/s Mitral E to A Ratio 0.5 MV Deceleration Time 378.1 ms MV E' Velocity 4.0 cm/s Mitral E to MV E' Ratio 9.7 TR Peak Velocity 188.5 cm/s TR Peak Gradient 14.2 mmHg Right Ventricular Systolic Press 19.2 mmHg FINDINGS Left Ventricle Mildly increased left ventricular wall thickness. Left ventricular ejection fraction is estimated at 50-55%. Right Ventricle Normal right ventricular size. Right ventricular systolic pressure within normal limits. Right Atrium Normal right atrial size. Left Atrium Moderate left atrial dilatation. Mitral Valve Mild mitral regurgitation. Aortic Valve Trileaflet aortic valve. Tricuspid Valve Mild tricuspid regurgitation. Pulmonic Valve Mild pulmonic regurgitation. Pericardium Normal pericardium. Aorta Normal size aortic root and proximal ascending aorta. CONCLUSIONS Mild left ventricle hypertrophy with preserved systolic function Previewed by: Dr. Angel Rodriguez MD (Electronically Signed) Final Date: 21 Oct 2021 07:47
== END | disposition home or self-care (01) ==
LOC: RADECHMAIN 13:42
PROVIDERS: ATTEND Family Medicine
DX: I51.7 Cardiomegaly (principal)
CPT/HCPCS: 93306

== ENCOUNTER 2022-06-05 07:16 | Day surgery (SDC) | payer MEDICARE ==
[2022-06-02 14:50] VITALS: BMI 24.7
[2022-06-05] MEDS ORDERED: LACTATED RINGERS 1,000 ML IV SCH (07:29)
[2022-06-05] MEDS ORDERED: LIDOCAINE 1% (10MG/ML) FOR IV START INTRADERMA ONE (07:45)
[2022-06-05] MEDS ORDERED: ONDANSETRON 4 MG/2 ML VIAL ONE (08:10)
[2022-06-05 08:16] VITALS: RESP 16; TEMP 98.8
[2022-06-05] MEDS ORDERED: PROPOFOL 10 MG/ML 20 ML VIAL IV ONE (08:20)
[2022-06-05] MEDS ORDERED: LIDOCAINE 2% INJ 20 MG/ML (2 ML VIAL) ONE (08:20)
--- NOTE | 2022-06-05 08:42 | P.PCN ---
Date of Procedure: 06/05/22 Procedure(s) Performed: Brief history: Patient is a pleasant 76-year-old white female scheduled for an elective upper endoscopy as well as colonoscopy as a part of evaluation of GERD/Saenz's esophagus and prior history of colon polyps Procedure performed: Esophagogastroduodenoscopy with biopsy Colonoscopy Preoperative diagnosis: GERD/Saenz's esophagus History of colon polyps [place] [facility] [place]: After informed consent was obtained from the patient was brought into the endoscopy unit and IV sedation was administered by anesthesia under continuous monitoring. Initially upper endoscopy was done. The Olympus GF 160 video endoscope was inserted inserted into the mouth and esophagus intubated without any difficulty and was gradually advanced into the stomach and duodenum and carefully examined. The bulb and second part of the duodenum appeared normal. The scope was then withdrawn into the stomach adequately insufflated with air and upon careful examination the antrum and body, cardia and fundus appeared normal. The scope was then withdrawn into the esophagus. The GE junction was located at 36 cm to the incisors. Mall sliding type hiatal hernia noted. There was a 3-4 mm tongue of Saenz's appearing mucosa proximal to the GE junction which was biopsied. There were no erythema erosions or ulcerations. Rest of the esophagus appeared normal. Patient tolerated the procedure well. At this time the patient continued to remain sedation. Initial digital rectal examination was normal. Olympus CF 160 video colonoscope was then inserted into the rectum and gradually advanced to the cecum without any difficulty. Careful examination was performed as the scope was gradually being withdrawn. The prep was excellent. The cecum, ascending colon, transverse colon, descending colon, sigmoid colon and rectum appeared normal. Scattered sigmoid diverticulosis. Retroflexion was performed in the rectum and no lesions were noted. Patient tolerated the procedure well. Impression: 1. Upper endoscopy revealed short segment Saenz's esophagus and small hiatal hernia 2. Colonoscopy revealed scattered sigmoid diverticulosis but no evidence of colorectal neoplasia Recommendations: Findings of this examination were discussed with the patient as well as her family. She was advised to follow with the biopsy results. If the biopsy confirms the presence of Saenz's esophagus he can have a repeat upper endoscopy in 3 years. In the meantime she will continue with omeprazole 20 mg daily and follow antireflux measures. Recommend repeat screening colonoscopy in 10 years.
[2022-06-05 09:15] VITALS: BP 131/67; PULSE 75
== END 2022-06-05 09:42 | disposition home or self-care (01) ==
LOC: ORWHC2ENDO 07:16
PROVIDERS: ATTEND Internal Medicine Gastroenterology
DX: Z12.11 Encounter for screening for malignant neoplasm of colon (principal); K21.9 Gastro-esophageal reflux disease without esophagitis; K22.70 Barrett's esophagus without dysplasia; I10 Essential (primary) hypertension; G47.33 Obstructive sleep apnea (adult) (pediatric); I34.1 Nonrheumatic mitral (valve) prolapse; F41.8 Other specified anxiety disorders; Z79.899 Other long term (current) drug therapy; Z86.010 Personal history of colon polyps; Z98.890 Other specified postprocedural states
CPT/HCPCS: 88305; 43239; J2405; J2704; J2001; G0105; 45378

== ENCOUNTER → 2022-09-10 | Outpatient (CLI) | payer MEDICARE ==
--- NOTE | 2022-09-11 08:00 | MM ---
Reason for Exam: Screening (asymptomatic). Last screening mammogram was performed 12 month(s) ago. Patient History: Menarche at age 12. First Full-Term at age 31. Hysterectomy at age 54. Postmenopausal. Cyst Aspiration on the Left side. 2004, Benign Excisional Biopsy on the left side. Maternal aunt had breast cancer, age 80. Risk Values: Rody 5 year model risk: 2.5%. NCI Lifetime model risk: 5.5%. Prior Study Comparison: 05/04/2019 Bilateral Screening Mammogram, [facility]. 07/02/2020 Bilateral Screening Mammogram, [facility]. 09/09/2021 Bilateral Screening Mammogram, [facility]. Tissue Density: The breast tissue is heterogeneously dense. This may lower the sensitivity of mammography. Findings: Analyzed By CAD. There is no suspicious group of microcalcifications or new suspicious mass in either breast. Overall Assessment: Negative, BI-RAD 1 Management: Screening Mammogram of both breasts in 1 year. A clinical breast exam by your physician is recommended on an annual basis and results should be correlated with mammographic findings. Electronically signed and approved by: Redd Mcdermott M.D. Radiologis
== END | disposition home or self-care (01) ==
LOC: RADMAMWWP 13:48
PROVIDERS: ATTEND Family Medicine
DX: Z12.31 Encounter for screening mammogram for malignant neoplasm of breast (principal); Z78.0 Asymptomatic menopausal state; Z80.3 Family history of malignant neoplasm of breast; Z98.890 Other specified postprocedural states
CPT/HCPCS: 77063; 77067

== ENCOUNTER → 2023-09-13 | Outpatient (CLI) | payer MEDICARE ==
--- NOTE | 2023-09-16 22:46 | MM ---
Reason for Exam: Screening (asymptomatic). Last screening mammogram was performed 12 month(s) ago. Patient History: Menarche at age 12. First Full-Term at age 31. Left ovary removed at age 54. Right ovary removed at age 54. Hysterectomy at age 54. Postmenopausal. Cyst Aspiration on the Left side. 2004, Benign Excisional Biopsy on the left side. Maternal aunt had breast cancer, age 80. Risk Values: Rody 5 year model risk: 2.5%. NCI Lifetime model risk: 5.1%. Prior Study Comparison: 07/02/2020 Bilateral Screening Mammogram, [facility]. 09/09/2021 Bilateral Screening Mammogram, [facility]. 09/10/2022 Bilateral MG 3D screening mammo w/cad, [facility]. Tissue Density: The breasts are heterogeneously dense, which may obscure small masses. Findings: Analyzed By CAD. The pattern is symmetrical. There is some focal high density focal asymmetries within the bilateral breasts. This includes middle portion left craniocaudal view, anterior portion right craniocaudal view and mid posterior portion right mediolateral oblique view. Compression views recommended for additional evaluation. Overall Assessment: Incomplete: need additional imaging evaluation, BI-RAD 0 Management: Diagnostic Mammogram of both breasts. A negative mammogram report should not preclude additional follow up of suspicious palpable abnormalities. Patient should continue monthly self breast exam. A clinical breast exam by your physician is recommended on an annual basis and results should be correlated with mammographic findings. Electronically signed and approved by: Glynn Araiza D.O. Radiologis
== END | disposition home or self-care (01) ==
LOC: RADMAMWWP 12:13
PROVIDERS: ATTEND Family Medicine
DX: Z12.31 Encounter for screening mammogram for malignant neoplasm of breast (principal); Z78.0 Asymptomatic menopausal state; Z80.3 Family history of malignant neoplasm of breast
CPT/HCPCS: 77063; 77067

== ENCOUNTER → 2023-09-22 | Outpatient (CLI) | payer MEDICARE ==
--- NOTE | 2023-09-22 09:41 | MM ---
Reason for Exam: Additional evaluation requested from abnormal screening. Last screening mammogram was performed less than 1 month ago. Patient History: Menarche at age 12. First Full-Term at age 31. Left ovary removed at age 54. Right ovary removed at age 54. Hysterectomy at age 54. Postmenopausal. Cyst Aspiration on the Left side. 2004, Benign Excisional Biopsy on the left side. Maternal aunt had breast cancer, age 80. Risk Values: Rody 5 year model risk: 2.5%. NCI Lifetime model risk: 5.1%. Prior Study Comparison: 09/10/2022 Bilateral MG 3D screening mammo w/cad, [facility]. 09/13/2023 Bilateral MG 3D screening mammo w/cad, [facility]. Tissue Density: The breasts are heterogeneously dense, which may obscure small masses. Findings: Analyzed By CAD. The pattern is symmetrical. Impression no persistent suspicious densities are identified. Focal asymmetries in the comparison in 2022, precautionary 6 month follow-up is recommended 2 views each breast. No suspicious groups of microcalcifications, spiculated or lobular masses, architectural distortion or other secondary signs of malignancy are mammographically apparent. Overall Assessment: Probably benign, BI-RAD 3 Management: Diagnostic Mammogram of both breasts in 6 months. A negative mammogram report should not preclude additional follow up of suspicious palpable abnormalities. Patient should continue monthly self breast exam. A clinical breast exam by your physician is recommended on an annual basis and results should be correlated with mammographic findings. Electronically signed and approved by: Glynn Araiza D.O. Radiologis
== END | disposition home or self-care (01) ==
LOC: RADMAMWWP 08:59
PROVIDERS: ATTEND Family Medicine
DX: R92.333 Mammographic heterogeneous density, bilateral breasts (principal); Z78.0 Asymptomatic menopausal state; Z80.3 Family history of malignant neoplasm of breast
CPT/HCPCS: 77066; G0279; 77062

== ENCOUNTER → 2023-12-07 | Outpatient (CLI) | payer MEDICARE ==
[2023-12-07 14:24] LABS: Basophils # (A) 0.04 X 10*3/uL (0.00-0.10); Eosinophils # (A) 0.05 X 10*3/uL (0.04-0.35); Eosinophils % (A) 1.3 %; HCT 40.5 % (37.2-46.3); HGB 13.4 g/dL (12.0-15.0); Lymphocytes # (A) 1.64 X 10*3/uL (0.90-5.00); Lymphocytes % (A) 42.3 %; MCH 33.5 pg (27.0-32.0); MCHC 33.1 g/dL (32.0-37.0); MCV 101.3 FL (80.0-97.0); Mean Platelet Volume 9.9 FL (9.5-12.2); Monocytes # (A) 0.48 X 10*3/uL (0.20-1.00); Monocytes % (A) 12.4 %; NRBC Per 100 WBC 0 X 10*3/uL (0.00-0.01); Neutrophils # (A) 1.66 X 10*3/uL (1.80-7.70); Neutrophils % (A) 42.7 %; Platelet Count 205 X 10*3/uL (140-440); RDW 11.8 % (11.5-14.5); WBC 3.88 X 10*3/uL (4.50-10.00)
[2023-12-07 15:54] LABS: ALT 19 U/L (8-44); AST 24 U/L (13-35); Albumin 4.4 g/dL (3.8-4.9); Alkaline Phosphatase 57 U/L (41-126); BUN/Creat Ratio 27.83 Ratio (12.00-20.00); Blood Urea Nitrogen 16.7 mg/dL (9.0-27.0); Carbon Dioxide 27.4 mmol/L (21.6-31.8); Chloride 103 mmol/L (96-109); Chol/HDL Ratio 2.31 Ratio; Glucose 99 mg/dL (70-110); LDL Cholesterol,Calculated 90.7 mg/dL (0.0-131.0); Potassium 4.4 mmol/L (3.5-5.5); Sodium 140 mmol/L (135-145); Total Bilirubin 0.5 mg/dL (0.3-1.2); Total Protein 6.4 g/dL (6.2-8.2)
== END | disposition home or self-care (01) ==
LOC: LABWHC1 09:27
PROVIDERS: ATTEND Family Medicine
DX: I10 Essential (primary) hypertension (principal)
CPT/HCPCS: 36415; 80053; 80061; 84443; 85025

== ENCOUNTER → 2024-03-23 | Outpatient (CLI) | payer MEDICARE ==
--- NOTE | 2024-03-23 14:18 | MM ---
Reason for Exam: Follow-up at short interval from prior study. Last screening mammogram was performed 6 month(s) ago. Patient History: Menarche at age 12. First Full-Term at age 31. Left ovary removed at age 54. Right ovary removed at age 54. Hysterectomy at age 54. Postmenopausal. Patient has history of breast feeding. Cyst Aspiration on the Left side. 2005, Benign Excisional Biopsy on the left side. Maternal aunt had breast cancer, age 80. Mother had ovarian cancer, age 64. Risk Values: Rody 5 year model risk: 2.5%. NCI Lifetime model risk: 5.1%. Prior Study Comparison: 03/19/2017 Bilateral Screening Mammogram, [facility]. 05/04/2019 Bilateral Screening Mammogram, [facility]. 07/02/2020 Bilateral Screening Mammogram, [facility]. 09/09/2021 Bilateral Screening Mammogram, [facility]. 09/10/2022 Bilateral MG 3D screening mammo w/cad, [facility]. 09/13/2023 Bilateral MG 3D screening mammo w/cad, [facility]. 09/22/2023 Bilateral MG 3D work up w/cad [facility], [facility]. Tissue Density: The breasts are heterogeneously dense, which may obscure small masses. Findings: Analyzed By CAD. No evidence for mass or distortion. Suspicious calcifications or skin thickening. Overall Assessment: Benign, BI-RAD 2 Management: Screening Mammogram of both breasts in 1 year. . Results were given to the patient verbally at the time of exam. Patient should continue monthly self-breast exams. A clinical breast exam by your physician is recommended on an annual basis. This exam should not preclude additional follow-up of suspicious palpable abnormalities. Note on Rody scores and lifetime risk: 1. A Rody score greater than 3% is considered moderate risk. If this is the case, consider specialist referral to assess eligibility for a risk reducing agent. 2. If overall lifetime risk for the development of breast cancer is 20% or higher, the patient may qualify for future screening with alternating mammogram and breast MRI. [facility], , 03/23/2024 2:14 PM. Electronically signed and approved by: Redd Mcdermott M.D. Radiologis
== END | disposition home or self-care (01) ==
LOC: RADMAMWWP 13:27
PROVIDERS: ATTEND Family Medicine
DX: R92.2 Inconclusive mammogram (principal); Z78.0 Asymptomatic menopausal state; Z80.3 Family history of malignant neoplasm of breast; Z80.41 Family history of malignant neoplasm of ovary; Z90.721 Acquired absence of ovaries, unilateral; R92.333 Mammographic heterogeneous density, bilateral breasts
CPT/HCPCS: 77066; G0279; 77062

== ENCOUNTER → 2024-05-31 | Outpatient (CLI) | payer MEDICARE ==
[2024-05-31 16:19] LABS: ALT 13 U/L (8-44); AST 21 U/L (13-35); Albumin 4.2 g/dL (3.8-4.9); Alkaline Phosphatase 59 U/L (41-126); BUN/Creat Ratio 26.71 Ratio (12.00-20.00); Blood Urea Nitrogen 18.7 mg/dL (9.0-27.0); Calcium 9.7 mg/dL (8.7-10.3); Carbon Dioxide 28.6 mmol/L (21.6-31.8); Chloride 103 mmol/L (96-109); Chol/HDL Ratio 2.26 Ratio; Globulin 2.1 g/dL (1.6-3.3); Glucose 101 mg/dL (70-110); LDL Cholesterol,Calculated 87.5 mg/dL (0.0-131.0); Potassium 4.4 mmol/L (3.5-5.5); Sodium 141 mmol/L (135-145); Total Bilirubin 0.6 mg/dL (0.3-1.2); Total Protein 6.3 g/dL (6.2-8.2); VLDL Calculation 15.12 mg/dL (5.00-40.00)
[2024-05-31 17:36] LABS: Basophils # (A) 0.04 X 10*3/uL (0.00-0.10); Basophils % (A) 0.9 %; Eosinophils # (A) 0.04 X 10*3/uL (0.04-0.35); Eosinophils % (A) 0.9 %; HCT 39.2 % (37.2-46.3); Lymphocytes # (A) 1.35 X 10*3/uL (0.90-5.00); Lymphocytes % (A) 30.8 %; MCHC 33.2 g/dL (32.0-37.0); MCV 99.5 FL (80.0-97.0); Mean Platelet Volume 9.7 FL (9.5-12.2); Monocytes # (A) 0.41 X 10*3/uL (0.20-1.00); Monocytes % (A) 9.3 %; NRBC Per 100 WBC 0 X 10*3/uL (0.00-0.01); Neutrophils # (A) 2.54 X 10*3/uL (1.80-7.70); Neutrophils % (A) 57.9 %; Platelet Count 210 X 10*3/uL (140-440); RBC 3.94 X 10*6/uL (4.10-5.20); RDW 11.6 % (11.5-14.5); WBC 4.39 X 10*3/uL (4.50-10.00)
== END | disposition home or self-care (01) ==
LOC: LABWHC1 10:09
PROVIDERS: ATTEND Family Medicine
DX: I10 Essential (primary) hypertension (principal)
CPT/HCPCS: 36415; 80053; 80061; 84443; 85025

== ENCOUNTER 2024-07-12 13:00 | Emergency (ER) | payer MEDICARE ==
--- NOTE | 2024-07-12 13:33 | ED ---
Fall HPI - General Chief Complaint: Fall Stated Complaint: Fall-Head/neck pain Time Seen by Provider: 07/12/24 13:04 Source: patient, RN notes reviewed Mode of arrival: ambulatory - History of Present Illness Initial Comments: Patient is a 79 year old female presenting for bilateral buttock and left elbow pain after fall 2 days ago. She states that she was walking her dogs on a leash and her feet were swept out from under her. She states she landed on her butt and left arm. She states that she thinks she hit her head because she had a headache after, but it was relieved with Excedrin. She states that she has pain in her butt when she goes up stairs and getting into the car. She endorses bruising on her right buttock, and mild tenderness to the touch. She is also experiencing new right sided neck pain, which she went to urgent care for, and they prompted her to come to the ED. She denies any pain with moving her neck, or tenderness to palpation and states it is "not severe". She states that she had back surgery "13 years ago" for a "disc herniation". She denies LOC, lightheadedness, chest pain, shortness of breath, current headache, LE pain, numbness or tingling. - Related Data Home Medications Medication Instructions Recorded Confirmed Ascorbic Acid [Vitamin C] 500 mg PO HS 01/02/16 06/05/22 Calcium Carbonate [Calcium] 600 mg PO AC-BID 01/02/16 06/05/22 Cholecalciferol [Vitamin D3] 2,000 unit PO AC-BID 01/02/16 06/05/22 Magnesium Oxide [Mag-Ox] 250 mg PO AC-BID 01/02/16 06/05/22 Multivitamins, Thera [Multivitamin] 1 tab PO HS 01/02/16 06/05/22 Omeprazole 40 mg PO HS 01/02/16 06/05/22 Melatonin [Melatonin Tr] 10 mg PO HS 10/10/21 06/05/22 Acetaminophen Tab [Tylenol Tab] 2,000 mg PO DAILY PRN 06/02/22 06/05/22 lisinopriL [Zestril] 5 mg PO DAILY 06/02/22 06/05/22 Acetaminophen/Caffeine [Excedrin 1 each PO DAILY PRN 06/05/22 06/05/22 Tension Headache] Allergies Allergy/AdvReac Type Severity Reaction Status Date / Time codeine AdvReac Nausea & Verified 06/05/22 07:38 Vomiting Review of Systems ROS Statement: Those systems with pertinent positive or pertinent negative responses have been documented in the HPI. ROS Other: All systems not noted in ROS Statement are negative. Past Medical History Past Medical History: GERD/Reflux, Hypertension, Mitral Valve Prolapse (MVP), Osteoarthritis (OA), Sleep Apnea/CPAP/BIPAP Additional Past Medical History / Comment(s): heart murmur, DOES NOT USE A CAP MACHINE. DIVERTICULOSIS, CRUZ'S ESOPHOGUS, BPPV- Veritigo History of Any Multi-Drug Resistant Organisms: None Reported Past Surgical History: Back Surgery, Hysterectomy Additional Past Surgical History / Comment(s): COLONOSCOPY AND EGD, CHRONIC DAILY HEADACHES Past Anesthesia/Blood Transfusion Reactions: Postoperative Nausea & Vomiting (PONV) Past Psychological History: Anxiety, Depression Smoking Status: Never smoker Past Alcohol Use History: None Reported Past Drug Use History: None Reported - Past Family History Mother Family Medical History: Cancer, CVA/TIA Additional Family Medical History / Comment(s): OVARIAN CANCER General Exam Limitations: no limitations General appearance: alert, in no apparent distress Head exam: Present: atraumatic, normocephalic, normal inspection Neck exam: Present: normal inspection, full ROM. Absent: tenderness, meningismus, lymphadenopathy Respiratory exam: Present: normal lung sounds bilaterally. Absent: respiratory distress, wheezes, rales, rhonchi, stridor Cardiovascular Exam: Present: regular rate, systolic murmur GI/Abdominal exam: Present: soft, normal bowel sounds. Absent: distended, tenderness, guarding, rebound, rigid Left Shoulder Exam: Present: normal inspection, full ROM Upper Arm exam: Present: normal inspection, full ROM, tenderness Elbow exam: Present: normal inspection, full ROM Forearm Wrist exam: Present: normal inspection, full ROM Hand Wrist exam: Present: normal inspection, full ROM Back exam: Present: tenderness (buttocks area b/l) Neurological exam: Present: alert, oriented X3, CN II-XII intact Skin exam: Present: warm, dry, intact, normal color. Absent: rash Course Vital Signs 07/12/24 07/12/24 13:02 14:08 Temperature 98 F 98.7 F Pulse Rate 53 L 57 L Respiratory 16 18 Rate Blood Pressure 122/66 104/71 O2 Sat by Pulse 98 96 Oximetry Medical Decision Making - Medical Decision Making Was pt. sent in by a medical professional or institution ([facility], [facility], urgent care, hospital, or snf...) When possible be specific @ -Urgent care Did you speak to anyone other than the patient for history (EMS, parent, family, police, friend...)? What history was obtained from this source @ -No Did you review nursing and triage notes (agree or disagree)? Why? @ -I reviewed and agree with nursing and triage notes Were old charts reviewed (outside hosp., previous admission, EMS record, old EKG, old radiological studies, urgent care reports/EKG's, snf records)? Report findings @ -No old charts were reviewed Differential Diagnosis (chest pain, altered mental status, abdominal pain women, abdominal pain men, vaginal bleeding, weakness, fever, dyspnea, syncope, headache, dizziness, GI bleed, back pain, seizure, CVA, palpatations, mental health, musculoskeletal)? @ -Pelvic fracture, sacral fracture, cervical strain EKG interpreted by me (3pts min.). @ -[None X-rays interpreted by me (1pt min.). @ -X-ray cervical spine showing severe degenerative changes, no acute fracture X-ray pelvis no acute fracture X-ray elbow no acute fracture or malalignment CT interpreted by me (1pt min.). @ -None done U/S interpreted by me (1pt. min.). @ -None done What testing was considered but not performed or refused? (CT, X-rays, U/S, labs)? Why? @ -None What meds were considered but not given or refused? Why? @ -None Did you discuss the management of the patient with other professionals (professionals i.e. [facility], [facility], lab, RT, psych nurse, elementary school social worker, interior decorator painting, teacher, audit officer, machine adjuster leader case trim)? Give summary @ -No Was smoking cessation discussed for >3mins.? @ -No Was critical care preformed (if so, how long)? @ -No Were there social determinants of health that impacted care today? How? (Homelessness, low income, unemployed, alcoholism, drug addiction, transportation, low edu. Level, literacy, decrease access to med. care, senior care, rehab)? @ -No Was there de-escalation of care discussed even if they declined (Discuss DNR or withdrawal of care, Hospice)? DNR status @ -No What co-morbidities impacted this encounter? (DM, HTN, Smoking, COPD, CAD, Cancer, CVA, ARF, Chemo, Hep., AIDS, mental health diagnosis, sleep apnea, morbid obesity)? @ -None Was patient admitted / discharged? Hospital course, mention meds given and route, prescriptions, significant lab abnormalities, going to OR and other pertinent info. @ -Discharge patient presented from urgent care after a fall x-rays negative for acute process patient has multiple contusions. Undiagnosed new problem with uncertain prognosis? @ -No Drug Therapy requiring intensive monitoring for toxicity (Heparin, Nitro, Insulin, Cardizem)? @ -No Were any procedures done? @ -No Diagnosis/symptom? @ -Fall, arm contusion, pelvic contusion Acute, or Chronic, or Acute on Chronic? @ -Acute Uncomplicated (without systemic symptoms) or Complicated (systemic symptoms)? @ -Uncomplicated Side effects of treatment? @ -No Exacerbation, Progression, or Severe Exacerbation? @ -No Poses a threat to life or bodily function? How? (Chest pain, USA, NC, pneumonia, PE, COPD, DKA, ARF, appy, cholecystitis, CVA, Diverticulitis, Homicidal, Suicidal, threat to staff... and all critical care pts) @ -No Disposition Clinical Impression: Fall, Arm contusion, Pelvic contusion, Sacral contusion Disposition: HOME SELF-CARE Condition: Stable Instructions (If sedation given, give patient instructions): Contusion in Adults (ED) Additional Instructions: Please return to the Emergency Department if symptoms worsen or any other concerns. Is patient prescribed a controlled substance at d/c from ED?: No Referrals: Robe Dudley MD [Primary Care Provider] - 1-2 days Time of Disposition: 14:07
--- NOTE | 2024-07-12 13:55 | XR ---
EXAMINATION TYPE: XR elbow complete LT DATE OF EXAM: 07/12/2024 CLINICAL HISTORY: Falling injury with pain TECHNIQUE: Frontal, lateral and oblique images of the left elbow are obtained. COMPARISON: None FINDINGS: There is no acute fracture/dislocation evident in the left elbow. No abnormal fat pad sig ns are seen. The overlying soft tissue appears unremarkable. IMPRESSION: There is no acute fracture or dislocation in the left elbow. [facility], , 07/12/2024 1:52 PM
--- NOTE | 2024-07-12 13:56 | XR ---
EXAMINATION TYPE: XR pelvis AP view DATE OF EXAM: 07/12/2024 CLINICAL HISTORY: Falling injury with pain TECHNIQUE: A single AP view of the pelvis is obtained. COMPARISON: Prior pelvic x-ray 2016. FINDINGS: There is no acute fracture/dislocation evident in the pelvis. Moderate axial joint space l oss in both hips. Lucency from overlying bowel gas makes evaluation slightly suboptimal. Pubic symphy sis is intact. Postsurgical change L4-L5 level is redemonstrated. Single left-sided pelvic phlebolith again seen. IMPRESSION: There is no acute displaced fracture in the pelvis. [facility], , 07/12/2024 1:53 PM
--- NOTE | 2024-07-12 13:59 | XR ---
EXAMINATION TYPE: XR cervical spine comp DATE OF EXAM: 07/12/2024 TECHNIQUE: Frontal, lateral, oblique, swimmers, and open mouth view of the cervical spine are obtaine d. HISTORY: fall pain COMPARISON: CT cervical spine 2016 FINDINGS: The cervical spine is visualized in its entirety from C1 thru the top of T1 level, loss of normal cervical curvature is redemonstrated. There is persistent grade 1 anterolisthesis C3 on C4. N o acute displaced fracture. The pre-vertebral soft tissue appears within normal limits. The C1-C2 ar ticulation is suboptimally evaluated due to dental overlap on the open-mouth view. Vertebral body hei ghts are maintained. Moderate to severe disc space narrowing and spurring at C4-C5 and C5-C6 levels i s redemonstrated. Moderate spurring and disc space narrowing at C6-C7 level is redemonstrated. The o blique images are within normal limits. Overlying soft tissue is unremarkable. IMPRESSION: No acute fracture or dislocation is seen in the cervical spine. [facility], , 07/12/2024 1:56 PM
[2024-07-12 14:10] VITALS: BP 104/71; PULSE 57; RESP 18; TEMP 98.7
== END 2024-07-12 14:21 | disposition home or self-care (01) ==
LOC: EC 13:00
DX: S50.02XA Contusion of left elbow, initial encounter (principal); S30.0XXA Contusion of lower back and pelvis, initial encounter; Z88.5 Allergy status to narcotic agent; W19.XXXA Unspecified fall, initial encounter; Y93.01 Activity, walking, marching and hiking
CPT/HCPCS: 72050; 72170; 99283